=== PATIENT | female | born 1975 | race Caucasian/White ===

== ENCOUNTER 2022-01-17 04:29 | Emergency (ER) | payer OTHER, SELFPAY ==
[2022-01-17 04:30] VITALS: BP 161/90; PULSE 63; RESP 17; TEMP 36.8; O2SAT 98
--- NOTE | 2022-01-17 04:52 | ED.DENTAL ---
HPI - Dental/Oral General Chief complaint: Dental/Oral Stated complaint: Right jaw pain Time Seen by Provider: 01/17/22 04:36 Source: patient History of Present Illness HPI Narrative: Patient presents with dental pain. She had intermittent pain since Tuesday on it was more severe she saw her dentist there was concern for infection she was started on clindamycin symptoms of gotten progressively worse so she came to the ER she is having a difficult sleeping this evening. Reports pain is sharp, constant, it is across her entire lower jaw pain is primarily on her right lower molars. She denies fevers or chills. Pain is exacerbated by chewing on that side denies any shortness of breath difficulty swallowing. Teeth map: 1. Related Data Home Medications Medication Instructions Recorded Confirmed Iron 08/04/19 Probiotic 08/04/19 Viamin D 08/04/19 Zinc 08/04/19 adalimumab [Humira] SUBCUT 08/04/19 ascorbic acid (vitamin C) [Vitamin 08/04/19 C] atenolol 25 mg PO DAILY 08/04/19 08/04/19 celecoxib [Celebrex] 100 mg PO BID 08/04/19 08/04/19 duloxetine 30 mg PO DAILY 08/04/19 08/04/19 duloxetine mg PO DAILY 08/04/19 folic acid 1 mg PO DAILY 08/04/19 08/04/19 gabapentin 100 mg PO HS 08/04/19 08/04/19 methotrexate 08/04/19 omeprazole 20 mg PO BID 08/04/19 08/04/19 spironolactone 50 mg PO BID 08/04/19 08/04/19 Allergies Allergy/AdvReac Type Severity Reaction Status Date / Time codeine AdvReac Unknown Verified 06/23/17 12:01 Review of Systems Review of Systems: CONSTITUTIONAL: Denies fever, chills, or sweats. EYES: Denies visual changes, redness, or discharge. ENT: Denies rhinorrhea, congestion, sore throat, or otalgia. CARDIOVASCULAR: Denies chest pain, palpitations, or edema. RESPIRATORY: Denies cough or dyspnea. GASTROINTESTINAL: Denies abdominal pain, nausea, vomiting, or diarrhea. GENITOURINARY: Denies dysuria or hematuria. SKIN: Denies rash or itching. MUSCULOSKELETAL: Denies back pain, joint pain, or myalgia. NEUROLOGIC: Denies headache, numbness, dizziness, or weakness. PSYCHIATRIC: Denies anxiety or depression. All systems reviewed & are unremarkable except as noted in HPI and below PMFSH Past Medical History Medical History (Updated 01/17/22 @ 04:56 by Jassi Burleson MD) Fibromyalgia Fx. left wrist Heart palpitations HTN (hypertension) Hypothyroidism No pertinent family history Rheumatoid arthritis Tooth ache Surgical History Surgical History H/O hernia repair Hx of appendectomy Hx of tonsillectomy Social History Social History Smoking status: Never smoker Exam Narrative: GENERAL: Well-appearing, well-nourished, and in no acute distress. HEAD: Normocephalic, atraumatic. EYES: PERRLA and EOMI. ENT: Nares clear, no rhinorrhea or epistaxis. Mucous membranes moist. Tenderness to palpation on tooth 31 no purulent drainage appreciated EXTREMITIES: Normal range of motion. No edema. SKIN: Warm, dry, no rash. NEURO: No focal deficits. Alert and oriented x3. PSYCH: Normal mood and affect. Course Vital Signs Vital signs: Vital Signs Temperature 36.8 C 01/17/22 04:30 Pulse Rate 63 01/17/22 04:30 Respiratory Rate 17 01/17/22 04:30 Blood Pressure 161/90 H 01/17/22 04:30 Pulse Oximetry 98 01/17/22 04:30 Temperature 36.8 C 01/17/22 04:30 Pulse Rate 63 01/17/22 04:30 Respiratory Rate 17 01/17/22 04:30 Blood Pressure 161/90 H 01/17/22 04:30 Pulse Oximetry 98 01/17/22 04:30 MDM - Dental/Oral MDM Narrative Medical decision making narrative: H&P as above, vss, pt looks clinically well, exam tenderness on tooth 31, labs/img considered, symptomatic relief available as needed, on reevaluation pt continues to looks clinically well. Suspect dental abscess, dns airway compromise, severe sepsis, necrotizing soft tissue infection. plan to
[2022-01-17] MEDS: oxyCODONE/ACETAMINOPHEN (*CRX) 5-325 MG TABLET 1 TABLET PO (05:09)
== END 2022-01-17 05:15 | disposition home or self-care (01) ==
PROVIDERS: Emergency Provider Emergency Medicine; PCP Internal Medicine
DX: K08.89 Other specified disorders of teeth and supporting structures (principal); I10 Essential (primary) hypertension; E03.9 Hypothyroidism, unspecified
CPT/HCPCS: 99283; A9270

== ENCOUNTER 2022-05-30 00:07 | Emergency (ER) | payer OTHER, SELFPAY ==
--- NOTE | ~2022-05-30 | XR_ITS ---
EXAMINATION: XR ankle RT min 3V DATE: 05/30/2022 02:11 INDICATION: Right ankle injury with with swelling post fall TECHNIQUE: Anteroposterior, oblique, mortise, and lateral views of the right ankle were obtained. COMPARISON: None. FINDINGS: Alignment is normal. No fracture. Joint spaces are well maintained. Moderate-sized plantar calcaneal spur. Soft tissue swelling with subcutaneous edema predominantly along the anterior and lateral aspe ct of the ankle. Ankle joint effusion is present. IMPRESSION: 1. Right ankle joint effusion and soft tissue swelling. No acute osseous abnormality. Reviewed, dictated and finalized at location A. IMPRESSION: 1. Right ankle joint effusion and soft tissue swelling. No acute osseous abnorm ality.
--- NOTE | ~2022-05-30 | XR_ITS ---
EXAMINATION: XR knee RT min 4V DATE: 05/30/2022 02:11 INDICATION: Right knee injury post fall TECHNIQUE: Anteroposterior, 2 oblique and crosstable lateral views of the right knee were obtained COMPARISON: None. FINDINGS: Alignment is normal. No fracture. Joint spaces appear relatively preserved on nonweightbearing imagi ng. Small marginal osteophytes in all 3 compartments. No joint effusion/layering lipohemarthrosis. So ft tissues are unremarkable. IMPRESSION: 1. Mild tricompartmental osteoarthritis at the right knee. No acute osseous abnormality. Reviewed, dictated and finalized at location A. IMPRESSION: 1. Mild tricompartmental osteoarthritis at the right knee. No acute osseous abn ormality.
[2022-05-30 00:41] VITALS: BP 148/90; PULSE 92; RESP 17; TEMP 36.8; O2SAT 96
--- NOTE | 2022-05-30 02:58 | ED.LOWEXIN ---
HPI - Extremity Injury (Lower) General Chief Complaint: Extremity Injury, Lower Stated Complaint: Fall, right knee and ankle pain Time Seen by Provider: 05/30/22 02:46 Source: RN notes reviewed History of Present Illness HPI Narrative: Patient presents emergency room from home for right ankle and knee pain. Patient states that approximately 11 PM this evening she was walking down her basement stairs when she tripped on the third stair up causing her to fall down 2 stairs states the stairs were carpeted and she came down on her left leg she states that she had pain and swelling immediately on the left lateral ankle still some mild knee pain she denies any other injury she denies striking her head she denies any numbness or tingling the extremity states she did not take anything for the pain Related Data Home Medications Medication Instructions Recorded Confirmed Iron 08/04/19 Probiotic 08/04/19 Viamin D 08/04/19 Zinc 08/04/19 adalimumab 40 mg/0.8 mL subcut 08/04/19 subcutaneous syringe kit ([employer]) ascorbic acid (vitamin C) 1,000 mg 08/04/19 tablet (Vitamin C) atenolol 25 mg tablet 25 mg PO DAILY 08/04/19 08/04/19 celecoxib 100 mg capsule (Celebrex) 100 mg PO BID 08/04/19 08/04/19 duloxetine 30 mg capsule,delayed 30 mg PO DAILY 08/04/19 08/04/19 release duloxetine 60 mg capsule,delayed mg PO DAILY 08/04/19 release folic acid 1 mg tablet 1 mg PO DAILY 08/04/19 08/04/19 gabapentin 100 mg capsule 100 mg PO HS 08/04/19 08/04/19 methotrexate 2.5 mg/mL oral 08/04/19 solution omeprazole 20 mg tablet,delayed 20 mg PO BID 08/04/19 08/04/19 release spironolactone 50 mg tablet 50 mg PO BID 08/04/19 08/04/19 Allergies Allergy/AdvReac Type Severity Reaction Status Date / Time codeine AdvReac Unknown Nausea Verified 05/30/22 00:46 Review of Systems Review of Systems: Gen.: Denies fevers or chills ENT: Denies facial injury Respiratory: Denies shortness of breath CV: Denies chest pain GI: Denies abdominal pain nausea, emesis Musculoskeletal: See HPI Neuro: Denies head injury or loss of consciousness Skin: Denies rash Except as documented, all other systems reviewed and negative [facility] Past Medical History Medical History Fibromyalgia Fx. left wrist Heart palpitations HTN (hypertension) Hypothyroidism No pertinent family history Rheumatoid arthritis Tooth ache Surgical History Surgical History H/O hernia repair Hx of appendectomy Hx of tonsillectomy Social History Social History Smoking status: Never smoker Exam Narrative: APPEARANCE: No acute distress, nontoxic, resting in bed EYES: EOMI HEENT: Normocephalic, atraumatic RESPIRATORY: No respiratory distress Clear to auscultation bilaterally with no rhonchi wheezing or rales. CARDIOVASCULAR: Regular rate and rhythm without murmurs rubs or gallops. ABDOMINAL: Soft, nontender, nondistended, MUSCULOSKELETAl: Moves all extremities. No clubbing, cyanosis or edema. Tender palpation of the right anterior and lateral ankle with swelling over the right lateral ankle no tenderness of the medial malleolus dorsalis pedis pulse 2+ neurovascular intact mild tenderness of the right anterior knee no tenderness of the medial lateral or posterior knee full flexion of the knee without pain no tenderness of the proximal fibula or the base of the fifth metatarsal no tenderness of the right hip right lower extremity neurovascular intact NEURO: Awake and alert. Following commands, speech normal, no focal deficits SKIN:: Warm, dry. No rashes lesions or abrasions PSYCHIATRIC: Normal affect/mood, Course Course Emergency Course: Discussed with patient results of workup and diagnosis. Discussed need for follow-up with primary care, proper use of medication, and reasons to return to the emergency
[2022-05-30] MEDS: IBUPROFEN 600 MG TABLET PO (03:25)
== END 2022-05-30 03:44 | disposition home or self-care (01) ==
PROVIDERS: Emergency Provider Emergency Medicine; PCP Internal Medicine
DX: S93.401A Sprain of unspecified ligament of right ankle, initial encounter (principal); S80.01XA Contusion of right knee, initial encounter; W10.9XXA Fall (on) (from) unspecified stairs and steps, initial encounter; I10 Essential (primary) hypertension; E03.9 Hypothyroidism, unspecified; M06.9 Rheumatoid arthritis, unspecified; M79.7 Fibromyalgia
CPT/HCPCS: 73564; 73610; 99284; A9270

== ENCOUNTER 2023-04-01 17:28 | Emergency (ER) | payer OTHER, SELFPAY ==
--- NOTE | ~2023-04-01 | XR_ITS ---
EXAMINATION: XR hand LT min 3V INDICATION: Left hand pain TECHNIQUE: Three views of the left hand are obtained. COMPARISON: None available FINDINGS: Bone alignment is normal. There is no fracture. The joint spaces are maintained. There is p almar soft tissue swelling of the hand. No radiopaque foreign body is identified. IMPRESSION: 1. Palmar soft tissue swelling of the hand without acute osseous abnormality identified. Reviewed, dictated and finalized at location F. IMPRESSION: 1. Palmar soft tissue swelling of the hand without acute osseous abnormality id entified.
[2023-04-01 17:43] VITALS: BP 139/117; PULSE 70; RESP 18; TEMP 36.3; O2SAT 100
--- NOTE | 2023-04-01 17:48 | ED.GENADULT ---
HPI - General Adult General Chief complaint: Extremity Injury, Upper Stated complaint: Left Hand Pain Time Seen by Provider: 04/01/23 17:49 Source: patient, RN notes reviewed and old records reviewed Mode of arrival: ambulatory Limitations: no limitations History of Present Illness HPI narrative: 47-year-old female presents to the [facility] with left hand pain and abrasion to the palm of the left hand. States that she tripped and fell on Tuesday in [place]. States it is still sore and become swollen. Area is well taking care of, has been apply Neosporin and keeping it covered with a Band-Aid. Related Data Home Medications Medication Instructions Recorded Confirmed Iron 1 tab-cap DIRECTED 08/04/19 04/01/23 Probiotic 1 cap DIRECTED 08/04/19 04/01/23 Viamin D 1 cap DIRECTED 08/04/19 04/01/23 Zinc 50 mg DIRECTED 08/04/19 04/01/23 ascorbic acid (vitamin C) 1,000 mg 1,000 mg DIRECTED 08/04/19 04/01/23 tablet (Vitamin C) atenolol 25 mg tablet 25 mg PO DAILY 08/04/19 04/01/23 celecoxib 100 mg capsule (Celebrex) 100 mg PO BID 08/04/19 08/04/19 duloxetine 60 mg capsule,delayed 60 mg PO DAILY 08/04/19 04/01/23 release folic acid 1 mg tablet 1 mg PO DAILY 08/04/19 04/01/23 gabapentin 100 mg capsule 100 mg PO HS 08/04/19 04/01/23 omeprazole 20 mg tablet,delayed 20 mg PO BID 08/04/19 04/01/23 release spironolactone 50 mg tablet 50 mg PO BID 08/04/19 04/01/23 acyclovir 400 mg tablet 400 mg DIRECTED 04/01/23 04/01/23 azathioprine 50 mg tablet 50 mg DIRECTED 04/01/23 04/01/23 sulfasalazine 500 mg 500 mg PO DIRECTED 04/01/23 04/01/23 tablet,delayed release tramadol 50 mg tablet 50 mg DIRECTED 04/01/23 04/01/23 Allergies Allergy/AdvReac Type Severity Reaction Status Date / Time codeine AdvReac Unknown Nausea Verified 05/30/22 00:46 Review of Systems Review of Systems: All systems reviewed & are unremarkable except as noted in HPI and below Constitutional: Constitutional: Reports no additional constitutional complaints Eyes: Eyes: Reports no additional eye complaints ENT: Reports system reviewed and no additional complaints, except as documented Cardiovascular: Cardiovascular: Reports no additional cardiovascular complaints, Denies chest pain and Denies dyspnea Respiratory: Respiratory: Reports no additional respiratory complaints, Denies chest congestion, Denies cough and Denies dyspnea Gastrointestinal: Gastrointestinal: Reports no additional gastrointestinal complaints, Denies abdominal pain, Denies nausea and Denies vomiting Musculoskeletal: Musculoskeletal: Reports as per HPI Integumentary/Breasts: Skin/Breast: Reports as per HPI Neurologic: Reports system reviewed and no additional complaints, except as documented Psychiatric: Psychiatric: Reports no additional psychiatric complaints Allergic/Immunologic: Allergic/Immunologic: Reports no additional allergic/immunologic complaints PMFSH Past Medical History Medical History Fibromyalgia Fx. left wrist Heart palpitations HTN (hypertension) Hypothyroidism No pertinent family history Rheumatoid arthritis Tooth ache Surgical History Surgical History H/O hernia repair Hx of appendectomy Hx of tonsillectomy Social History Social History Smoking status: Never smoker Comments At the time of my signature, I reviewed and agree with the nursing past medical, surgical, social, and family history. There is no relevant family history pertinent to the patient complaint. Exam Const: General: cooperative, healthy appearing, comfortable, no acute distress, well developed, alert and well nourished Nutritional Appearance: well nourished Orientation/consciousness: patient oriented x3 Limitations: no limitations HENMT: Head: normal to inspection Ears: hearing grossly
== END 2023-04-01 18:40 | disposition home or self-care (01) ==
PROVIDERS: Emergency Provider Nurse Practitioner; PCP Internal Medicine
DX: S60.512A Abrasion of left hand, initial encounter (principal); S60.222A Contusion of left hand, initial encounter; W01.0XXA Fall on same level from slipping, tripping and stumbling without subsequent striking against object, initial encounter; M79.7 Fibromyalgia; I10 Essential (primary) hypertension; E03.9 Hypothyroidism, unspecified; M06.9 Rheumatoid arthritis, unspecified
CPT/HCPCS: 73130; 99213; G0463